=== PATIENT | female | born 1935 | race Hispanic/Latino ===

== ENCOUNTER → 2019-11-19 | Outpatient (CLI) | payer OTHER | END | disposition home or self-care (01) | LOC: SHCH 15:17 | PROVIDERS: ATTEND Internal Medicine Cardiovascular Disease | DX: I87.2 Venous insufficiency (chronic) (peripheral) (principal) | CPT/HCPCS: 93970 ==

== ENCOUNTER → 2020-01-14 | Outpatient (CLI) | payer OTHER | END | disposition home or self-care (01) | LOC: SHCH 12:00 | PROVIDERS: ATTEND Internal Medicine Cardiovascular Disease | DX: I87.2 Venous insufficiency (chronic) (peripheral) (principal) | CPT/HCPCS: 93971 ==

== ENCOUNTER → 2020-01-20 | Outpatient (CLI) | payer OTHER | END | disposition home or self-care (01) | LOC: SHCH 13:30 | PROVIDERS: ATTEND Internal Medicine Cardiovascular Disease | DX: Z09 Encounter for follow-up examination after completed treatment for conditions other than malignant neoplasm (principal); I87.2 Venous insufficiency (chronic) (peripheral) | CPT/HCPCS: 93971 ==

== ENCOUNTER 2020-05-25 14:37 | Inpatient (IN) | payer MEDICARE, OTHER ==
[~2020-05-25] VITALS: Ht 165.1 cm; Wt 64.0 kg
[2020-05-25 15:19] LABS: BASOPHILS % (AUTO) 0.5 % (0.0-5.0); EOSINOPHILS % (AUTO) 0.2 % (0.0-8.0); HEMATOCRIT 34.2 % (36-48); LYMPHOCYTES % (AUTO) 5.7 % (21.0-51.0); MEAN CORPUSCULAR HEMOGLOBIN 28.9 pg (27.0-33.0); MEAN CORPUSCULAR HGB CONC 33.9 g/dL (32.0-36.0); MEAN CORPUSCULAR VOLUME 85.3 fL (79-99); MONOCYTES % (AUTO) 4.9 % (3.0-13.0); NEUTROPHILS % (AUTO) 87.5 % (40.0-77.0); PLATELET COUNT (AUTO) 296 K/uL (130-400); RED BLOOD CELL COUNT(AUTO) 4.01 MIL/uL (4.00-5.50); RED CELL DISTRIBUTION WIDTH 16.7 % (11.0-15.5); WHITE BLOOD COUNT (AUTO) 14.5 K/uL (4.8-10.8)
[2020-05-25 15:28] LABS: CREATININE 2.1 mg/dL (0.5-1.5); POTASSIUM 3.8 mmol/L (3.5-5.1)
[2020-05-25 15:29] LABS: INR 1.19 (0.85-1.15); PROTHROMBIN TIME 12.8 SEC (9.6-11.6)
[2020-05-25 15:31] LABS: PARTIAL THROMBOPLASTIN TIME 32.5 SEC (26.3-35.5)
[2020-05-25 15:32] LABS: ALBUMIN 3.2 g/dL (3.5-5.0); BILIRUBIN,TOTAL 0.6 mg/dL (0.2-1.0); TOTAL PROTEIN, SERUM 7.5 g/dL (6.0-8.3)
[2020-05-25 15:40] LABS: B-TYPE NATRIURETIC PEPTIDE 897 pg/mL (0-100)
[2020-05-25] MEDS ORDERED: ZOSYN 3.375GM+NS 50ML 50 ML IV ONE (18:45)
[2020-05-25] MEDS ORDERED: VANCOMYCIN 750MG + NS 250 ML IV ONE ×2 (19:30)
[2020-05-25] MEDS ORDERED: GLUCAGON 1MG KIT 1 MG ML IM PRN (21:00)
[2020-05-25] MEDS ORDERED: ACETAMINOPHEN 325 MG TAB PO PRN (21:00)
[2020-05-25] MEDS: INSULIN R PO SS1/2 SQ SCH (21:00)
[2020-05-25] MEDS ORDERED: DEXTROSE 50%-WATER 50 ML DISP.SYRIN IV PRN (21:00)
[2020-05-25] MEDS ORDERED: CEFTRIAXONE 1G VIAL IVP SCH (21:00)
[2020-05-25] MEDS ORDERED: AZITHROMYCIN 500MG+NS 250ML 250 ML IV SCH (21:00)
[2020-05-26] MEDS ORDERED: ALPRAZOLAM 0.25 MG TABLET ONE ×2 (00:59→22:40)
[2020-05-26] MEDS: INSULIN R PO SS1/2 SQ SCH ×4 (07:30→21:00)
[2020-05-26] MEDS ORDERED: AZITHROMYCIN 500MG+NS 250ML 250 ML IV ONE (07:54)
[2020-05-26 07:55] LABS: BASOPHILS % (AUTO) 0.6 % (0.0-5.0); EOSINOPHILS % (AUTO) 0.4 % (0.0-8.0); HEMATOCRIT 33.5 % (36-48); MEAN CORPUSCULAR HEMOGLOBIN 27.6 pg (27.0-33.0); MEAN CORPUSCULAR HGB CONC 32.2 g/dL (32.0-36.0); MEAN CORPUSCULAR VOLUME 85.7 fL (79-99); MONOCYTES % (AUTO) 5.6 % (3.0-13.0); NEUTROPHILS % (AUTO) 85.5 % (40.0-77.0); PLATELET COUNT (AUTO) 256 K/uL (130-400); RED BLOOD CELL COUNT(AUTO) 3.91 MIL/uL (4.00-5.50); RED CELL DISTRIBUTION WIDTH 16.7 % (11.0-15.5); WHITE BLOOD COUNT (AUTO) 14.4 K/uL (4.8-10.8)
[2020-05-26] MEDS ORDERED: CEFTRIAXONE 1G VIAL ONE (07:55)
[2020-05-26] MEDS ORDERED: ENOXAPARIN SODIUM 30 MG/0.3 ML SQ ONE (07:55)
[2020-05-26] MEDS ORDERED: PANTOPRAZOLE 40 MG/VIAL ONE (07:55)
[2020-05-26 08:22] LABS: ALBUMIN 2.9 g/dL (3.5-5.0); BILIRUBIN,TOTAL 0.7 mg/dL (0.2-1.0); CREATININE 2.5 mg/dL (0.5-1.5); POTASSIUM 3.9 mmol/L (3.5-5.1); TOTAL PROTEIN, SERUM 6.7 g/dL (6.0-8.3)
[2020-05-26] MEDS: PANTOPRAZOLE 40 MG TAB DR PO SCH (09:00)
[2020-05-26] MEDS: ENOXAPARIN SODIUM 30 MG/0.3 ML SQ SCH (09:00)
[2020-05-26] MEDS ORDERED: VANCOMYCIN PROTOCOL PER PHARMACY IV SCH (12:30)
[2020-05-26] MEDS: VANCOMYCIN 500MG+NS 100ML 100 ML IV SCH (13:00)
[2020-05-26] MEDS ORDERED: ZOSYN 3.375GM+NS 50ML 50 ML IV ONE (13:14)
[2020-05-26] MEDS: ZOSYN 3.375GM+NS 50ML 50 ML IV SCH (14:00)
[2020-05-26] MEDS ORDERED: INSULIN HUMULIN R 100 UNIT/ML 3ML ONE (17:42)
[2020-05-26 23:24] LABS: CREATINE KINASE, TOTAL 10 U/L (21-232); MYOGLOBIN 74 ng/mL (10-92); TROPONIN I < 0.04 ng/mL (0.00-0.06)
[2020-05-27] VITALS (7 sets, daily range): BP systolic 112–134; BP diastolic 53–71
[2020-05-27] MEDS: ZOSYN 3.375GM+NS 50ML 50 ML IV SCH ×2 (02:30→15:17)
[2020-05-27 05:29] LABS: MEAN CORPUSCULAR HEMOGLOBIN 27.7 pg (27.0-33.0); MEAN CORPUSCULAR HGB CONC 32.2 g/dL (32.0-36.0); PLATELET COUNT (AUTO) 248 K/uL (130-400); RED BLOOD CELL COUNT(AUTO) 3.72 MIL/uL (4.00-5.50); RED CELL DISTRIBUTION WIDTH 16.7 % (11.0-15.5); WHITE BLOOD COUNT (AUTO) 13.1 K/uL (4.8-10.8)
[2020-05-27 05:35] LABS: CREATININE 2.7 mg/dL (0.5-1.5); PHOSPHORUS 3.1 mg/dL (2.5-4.9); POTASSIUM 3.8 mmol/L (3.5-5.1)
[2020-05-27 05:38] LABS: BAND NEUTROPHILS % (MANUAL) 3 % (0-2); LYMPHOCYTES % (MANUAL) 11 % (22-44); MONOCYTES % (MANUAL) 7 % (2-9); SEGMENTED NEUTROPHILS % 79 % (40-70)
[2020-05-27 05:39] LABS: MAN.DIFF COMMENT-IMPRESSION MANUAL DIFFERENTIAL; PLATELET MORPHOLOGY COMMENT ADEQUATE
[2020-05-27] MEDS ORDERED: MIDODRINE HCL 5 MG TABLET PO SCH ×2 (08:45→17:43)
[2020-05-27] MEDS: ENOXAPARIN SODIUM 30 MG/0.3 ML SQ SCH (10:19)
[2020-05-27] MEDS: PANTOPRAZOLE 40 MG TAB DR PO SCH (10:19)
[2020-05-27] MEDS: MEGESTROL 400 MG/10 ML UDCUP PO SCH (10:19)
[2020-05-27] MEDS: INSULIN R PO SS1/2 SQ SCH ×3 (11:30→20:15)
[2020-05-27] MEDS ORDERED: LORAZEPAM 1 MG TABLET PO ONE (22:00)
[2020-05-28] MEDS: VANCOMYCIN 500MG+NS 100ML 100 ML IV SCH (00:04)
[2020-05-28] MEDS: ZOSYN 3.375GM+NS 50ML 50 ML IV SCH ×2 (01:02→16:02)
[2020-05-28 04:00] VITALS: BP 116/56
[2020-05-28] MEDS: INSULIN R PO SS1/2 SQ SCH ×4 (05:47→20:07)
[2020-05-28] MEDS: PANTOPRAZOLE 40 MG TAB DR PO SCH (08:54)
[2020-05-28] MEDS: MEGESTROL 400 MG/10 ML UDCUP PO SCH (08:54)
[2020-05-28] MEDS: ENOXAPARIN SODIUM 30 MG/0.3 ML SQ SCH (08:55)
[2020-05-28 09:41] VITALS: BP 127/59
[2020-05-28 12:00] VITALS: BP 111/52
[2020-05-28 16:00] VITALS: BP 120/60
[2020-05-28] MEDS: LACTULOSE 20 GM/30 ML UDCUP PO SCH (19:40)
[2020-05-28 19:55] VITALS: BP 133/56
[2020-05-28] MEDS ORDERED: PANT40TA PO (22:23)
[2020-05-28] MEDS ORDERED: FLUD0.1T2 PO (22:23)
[2020-05-28] MEDS ORDERED: DIPH1TAB PO (22:23)
[2020-05-28] MEDS ORDERED: DIGO125T71 PO (22:23)
[2020-05-28] MEDS ORDERED: APIX2.5T PO (22:23)
[2020-05-28] MEDS ORDERED: FOLI1TAB61 PO (22:23)
[2020-05-28] MEDS ORDERED: MIDO10TA PO (22:23)
[2020-05-28] MEDS ORDERED: GLIP2.5T2 PO (22:23)
[2020-05-28] MEDS ORDERED: ZOLPIDEM TARTRATE 5 MG TAB ONE (23:21)
[2020-05-28] MEDS ORDERED: ZOLPIDEM TARTRATE 5 MG TAB PO ONE (23:30)
[2020-05-28 23:37] VITALS: BP 150/57
[2020-05-29] MEDS: ZOSYN 3.375GM+NS 50ML 50 ML IV SCH ×2 (00:22→15:17)
[2020-05-29 03:44] VITALS: BP 114/61
[2020-05-29] MEDS: INSULIN R PO SS1/2 SQ SCH ×4 (05:43→21:00)
[2020-05-29 08:00] VITALS: BP 152/75
[2020-05-29 09:08] LABS: HEMATOCRIT 31.6 % (36-48); MEAN CORPUSCULAR HEMOGLOBIN 28.5 pg (27.0-33.0); MEAN CORPUSCULAR HGB CONC 33.5 g/dL (32.0-36.0); MEAN CORPUSCULAR VOLUME 84.9 fL (79-99); RED BLOOD CELL COUNT(AUTO) 3.72 MIL/uL (4.00-5.50); RED CELL DISTRIBUTION WIDTH 16.7 % (11.0-15.5); WHITE BLOOD COUNT (AUTO) 13.6 K/uL (4.8-10.8)
[2020-05-29] MEDS: LACTULOSE 20 GM/30 ML UDCUP PO SCH ×2 (09:16→20:49)
[2020-05-29] MEDS: MEGESTROL 400 MG/10 ML UDCUP PO SCH (09:16)
[2020-05-29] MEDS: PANTOPRAZOLE 40 MG TAB DR PO SCH (09:16)
[2020-05-29] MEDS: ENOXAPARIN SODIUM 30 MG/0.3 ML SQ SCH (09:17)
[2020-05-29 09:22] LABS: CREATININE 2.5 mg/dL (0.5-1.5); MAGNESIUM 1.6 mg/dL (1.80-2.40); PHOSPHORUS 2.9 mg/dL (2.5-4.9); POTASSIUM 3.5 mmol/L (3.5-5.1)
[2020-05-29 12:00] VITALS: BP 120/54
[2020-05-29] MEDS ORDERED: COMPOUND IV REFRIGERATED 1 EACH IVSOLN MISC PRN (15:00)
[2020-05-29] MEDS: VANCOMYCIN 1G 1.5 GM in 0.9% NACL 250ML 250 ML IV SCH (15:16)
[2020-05-29 16:00] VITALS: BP 129/47
[2020-05-29 20:00] VITALS: BP 124/59
[2020-05-29] MEDS ORDERED: LORA-192 PO (20:15)
[2020-05-29] MEDS: CLONAZEPAM 0.5 MG TABLET PO SCH (20:48)
[2020-05-30] VITALS (7 sets, daily range): BP systolic 103–130; BP diastolic 43–71
[2020-05-30] MEDS: ZOSYN 3.375GM+NS 50ML 50 ML IV SCH ×3 (02:02→20:03)
[2020-05-30 04:32] LABS: BASOPHILS % (AUTO) 0.6 % (0.0-5.0); EOSINOPHILS % (AUTO) 0.5 % (0.0-8.0); HEMATOCRIT 29.6 % (36-48); LYMPHOCYTES % (AUTO) 8.9 % (21.0-51.0); MEAN CORPUSCULAR HEMOGLOBIN 28.5 pg (27.0-33.0); MEAN CORPUSCULAR HGB CONC 33.8 g/dL (32.0-36.0); MEAN CORPUSCULAR VOLUME 84.3 fL (79-99); MONOCYTES % (AUTO) 5.2 % (3.0-13.0); NEUTROPHILS % (AUTO) 84.3 % (40.0-77.0); PLATELET COUNT (AUTO) 214 K/uL (130-400); RED BLOOD CELL COUNT(AUTO) 3.51 MIL/uL (4.00-5.50); WHITE BLOOD COUNT (AUTO) 14.4 K/uL (4.8-10.8)
[2020-05-30 04:48] LABS: CREATININE 2.2 mg/dL (0.5-1.5); PHOSPHORUS 2.5 mg/dL (2.5-4.9); POTASSIUM 3.6 mmol/L (3.5-5.1)
[2020-05-30] MEDS: INSULIN R PO SS1/2 SQ SCH ×4 (07:18→21:41)
[2020-05-30] MEDS: LACTULOSE 20 GM/30 ML UDCUP PO SCH ×2 (07:19→20:04)
[2020-05-30] MEDS: MEGESTROL 400 MG/10 ML UDCUP PO SCH (08:45)
[2020-05-30] MEDS: ENOXAPARIN SODIUM 30 MG/0.3 ML SQ SCH (08:45)
[2020-05-30] MEDS: PANTOPRAZOLE 40 MG TAB DR PO SCH (08:45)
[2020-05-30] MEDS: CLONAZEPAM 0.5 MG TABLET PO SCH (20:01)
[2020-05-31 03:50] VITALS: BP 116/69
[2020-05-31 04:11] LABS: HEMATOCRIT 30.4 % (36-48); MEAN CORPUSCULAR HEMOGLOBIN 28.4 pg (27.0-33.0); MEAN CORPUSCULAR HGB CONC 32.9 g/dL (32.0-36.0); MEAN CORPUSCULAR VOLUME 86.4 fL (79-99); PLATELET COUNT (AUTO) 220 K/uL (130-400); RED BLOOD CELL COUNT(AUTO) 3.52 MIL/uL (4.00-5.50); RED CELL DISTRIBUTION WIDTH 16.9 % (11.0-15.5); WHITE BLOOD COUNT (AUTO) 12.2 K/uL (4.8-10.8)
[2020-05-31 04:27] LABS: ALBUMIN 2.6 g/dL (3.5-5.0); BILIRUBIN,TOTAL 0.7 mg/dL (0.2-1.0); CREATININE 2.6 mg/dL (0.5-1.5); POTASSIUM 3.9 mmol/L (3.5-5.1); TOTAL PROTEIN, SERUM 6.1 g/dL (6.0-8.3)
[2020-05-31 04:53] LABS: BAND NEUTROPHILS % (MANUAL) 2 % (0-2); EOSINOPHILS % (MANUAL) 1 % (1-6); LYMPHOCYTES % (MANUAL) 9 % (22-44); MAN.DIFF COMMENT-IMPRESSION MANUAL DIFFERENTIAL; MONOCYTES % (MANUAL) 1 % (2-9); PLATELET MORPHOLOGY COMMENT ADEQUATE; SEGMENTED NEUTROPHILS % 87 % (40-70)
[2020-05-31] MEDS: INSULIN R PO SS1/2 SQ SCH ×3 (06:32→20:25)
[2020-05-31 07:00] VITALS: BP 128/59
[2020-05-31] MEDS: LACTULOSE 20 GM/30 ML UDCUP PO SCH ×2 (09:00→20:09)
[2020-05-31] MEDS: PANTOPRAZOLE 40 MG TAB DR PO SCH (10:46)
[2020-05-31] MEDS: MEGESTROL 400 MG/10 ML UDCUP PO SCH (10:46)
[2020-05-31] MEDS: ENOXAPARIN SODIUM 30 MG/0.3 ML SQ SCH (10:46)
[2020-05-31] MEDS: ZOSYN 3.375GM+NS 50ML 50 ML IV SCH ×2 (10:46→20:17)
[2020-05-31 11:00] VITALS: BP 116/55
[2020-05-31 15:00] VITALS: BP 122/55
[2020-05-31] MEDS: VANCOMYCIN 1G 1.5 GM in 0.9% NACL 250ML 250 ML IV SCH (15:25)
[2020-05-31] MEDS: CLONAZEPAM 0.5 MG TABLET PO SCH (20:17)
[2020-05-31 20:28] VITALS: BP 101/50
[2020-05-31 23:48] VITALS: BP 103/61
[2020-06-01 03:35] VITALS: BP 116/62
[2020-06-01 05:23] LABS: BASOPHILS % (AUTO) 0.5 % (0.0-5.0); EOSINOPHILS % (AUTO) 0.5 % (0.0-8.0); HEMATOCRIT 29.8 % (36-48); LYMPHOCYTES % (AUTO) 14.7 % (21.0-51.0); MEAN CORPUSCULAR HEMOGLOBIN 28.1 pg (27.0-33.0); MEAN CORPUSCULAR HGB CONC 32.9 g/dL (32.0-36.0); MEAN CORPUSCULAR VOLUME 85.4 fL (79-99); MONOCYTES % (AUTO) 5.3 % (3.0-13.0); NEUTROPHILS % (AUTO) 78.7 % (40.0-77.0); PLATELET COUNT (AUTO) 231 K/uL (130-400); RED BLOOD CELL COUNT(AUTO) 3.49 MIL/uL (4.00-5.50); RED CELL DISTRIBUTION WIDTH 17.1 % (11.0-15.5); WHITE BLOOD COUNT (AUTO) 11.8 K/uL (4.8-10.8)
[2020-06-01] MEDS: INSULIN R PO SS1/2 SQ SCH ×2 (05:32→11:30)
[2020-06-01 05:56] LABS: CREATININE 2.9 mg/dL (0.5-1.5); POTASSIUM 4.2 mmol/L (3.5-5.1)
[2020-06-01 07:40] VITALS: BP 120/68
[2020-06-01] MEDS: ENOXAPARIN SODIUM 30 MG/0.3 ML SQ SCH (09:00)
[2020-06-01] MEDS: LACTULOSE 20 GM/30 ML UDCUP PO SCH (09:00)
[2020-06-01] MEDS ORDERED: LEVO250S3 PO (09:04)
[2020-06-01] MEDS ORDERED: MEGE400O4 PO (09:04)
[2020-06-01 12:00] VITALS: BP 115/50
[2020-06-01] MEDS: PANTOPRAZOLE 40 MG TAB DR PO SCH (15:36)
[2020-06-01] MEDS: MEGESTROL 400 MG/10 ML UDCUP PO SCH (15:36)
[2020-06-01] MEDS: ZOSYN 3.375GM+NS 50ML 50 ML IV SCH (15:38)
[2020-06-01 16:00] VITALS: BP 128/62
== END 2020-06-01 18:50 | disposition home health service (06) | DRG 193 ==
LOC: EDH 14:37 → EDHIP 19:55 → 4CH 05-27 02:20
PROVIDERS: ADMIT Internal Medicine Nephrology; ATTEND Internal Medicine Nephrology
PROC: 5A1D70Z Performance of Urinary Filtration, Intermittent, Less than 6 Hours Per Day (ICD-10-PCS; principal; 2020-05-27)
PROC: 5A1D70Z Performance of Urinary Filtration, Intermittent, Less than 6 Hours Per Day (ICD-10-PCS; 2020-05-29)
PROC: 5A1D70Z Performance of Urinary Filtration, Intermittent, Less than 6 Hours Per Day (ICD-10-PCS; 2020-06-01)
DX: J18.9 Pneumonia, unspecified organism (principal); N18.6 End stage renal disease; I12.0 Hypertensive chronic kidney disease with stage 5 chronic kidney disease or end stage renal disease; C90.00 Multiple myeloma not having achieved remission; J91.8 Pleural effusion in other conditions classified elsewhere; I48.91 Unspecified atrial fibrillation; I95.89 Other hypotension; Y95 Nosocomial condition; R53.81 Other malaise; I25.10 Atherosclerotic heart disease of native coronary artery without angina pectoris; E11.22 Type 2 diabetes mellitus with diabetic chronic kidney disease; E11.21 Type 2 diabetes mellitus with diabetic nephropathy; Z99.2 Dependence on renal dialysis; Z90.49 Acquired absence of other specified parts of digestive tract; Z98.49 Cataract extraction status, unspecified eye; Z91.81 History of falling
CPT/HCPCS: 36415; 71045; 80048; 80053; 80202; 82550; 82948; 83735; 83874; 83880; 84100; 84484; 85025; 85027; 85610; 85730; 87040; 90935; 93005; 97039; C9113; G0378; J0456; J0696; J1650; J1815; J2543; J3370; J7050

== ENCOUNTER 2020-06-03 09:27 | Inpatient (IN) | payer MEDICARE ==
[~2020-06-03] VITALS: Ht 165.1 cm; Wt 69.7 kg
[~2020-06-03 09:27] MED LIST: APIX2.5T PO; DIGO125T71 PO; DIPH1TAB PO; FLUD0.1T2 PO; FOLI1TAB61 PO; GLIP2.5T2 PO; LEVO250S3 PO; LORA-192 PO; MEGE400O4 PO; MIDO10TA PO; PANT40TA PO
[2020-06-03 09:56] LABS: BASOPHILS % (AUTO) 0.7 % (0.0-5.0); EOSINOPHILS % (AUTO) 0.3 % (0.0-8.0); HEMATOCRIT 28.9 % (36-48); LYMPHOCYTES % (AUTO) 12.5 % (21.0-51.0); MEAN CORPUSCULAR HEMOGLOBIN 29.2 pg (27.0-33.0); MEAN CORPUSCULAR HGB CONC 33.9 g/dL (32.0-36.0); PLATELET COUNT (AUTO) 264 K/uL (130-400); RED BLOOD CELL COUNT(AUTO) 3.36 MIL/uL (4.00-5.50); RED CELL DISTRIBUTION WIDTH 17.5 % (11.0-15.5); WHITE BLOOD COUNT (AUTO) 15.1 K/uL (4.8-10.8)
[2020-06-03 10:08] LABS: CREATININE 2.9 mg/dL (0.5-1.5); POTASSIUM 4.8 mmol/L (3.5-5.1)
[2020-06-03 10:13] LABS: BILIRUBIN,TOTAL 0.5 mg/dL (0.2-1.0); TOTAL PROTEIN, SERUM 6.7 g/dL (6.0-8.3)
[2020-06-03 10:17] LABS: CREATINE KINASE, TOTAL 31 U/L (21-232); MYOGLOBIN 128 ng/mL (10-92); TROPONIN I < 0.04 ng/mL (0.00-0.06)
[2020-06-03 10:25] LABS: INR 1.17 (0.85-1.15); PROTHROMBIN TIME 12.6 SEC (9.6-11.6)
[2020-06-03 10:26] LABS: PARTIAL THROMBOPLASTIN TIME 30.2 SEC (26.3-35.5)
[2020-06-03] MEDS ORDERED: MORPHINE 2 MG SYG ONE (12:23)
[2020-06-03] MEDS ORDERED: ACETAMINOPHEN 650 MG SUPPOSITORY RC PRN (13:15)
[2020-06-03] MEDS ORDERED: ALBUTEROL 0.083% 2.5 MG/3 ML INH IH PRN (13:15)
[2020-06-03] MEDS: HYDRALAZINE 25MG TABLET PO SCH ×2 (13:15→18:00)
[2020-06-03] MEDS ORDERED: ACETAMINOPHEN 325 MG TAB PO PRN (13:15)
[2020-06-03] MEDS ORDERED: VANCOMYCIN PROTOCOL PER PHARMACY IV SCH (13:15)
[2020-06-03] MEDS ORDERED: TEMAZEPAM 15 MG CAPSULE PO PRN (13:15)
[2020-06-03] MEDS ORDERED: CLONIDINE HCL 0.1 MG TABLET PO PRN (13:15)
[2020-06-03] MEDS ORDERED: TRAMADOL HCL 50 MG TABLET PO PRN (13:15)
[2020-06-03] MEDS ORDERED: CEFEPIME HCL 1 GM VIAL ONE (13:48)
[2020-06-03 13:51] LABS: ABG BASE EXCESS 2.4 mmol/L (-2.0-3.0); ABG HCO3 25.3 mmol/L (21.0-28.0); ABG OXYGEN SATURATION 94.7 % (95.0-99.0); ABG PCO2 34 mmHg (32-45)
[2020-06-03] MEDS ORDERED: CEFEPIME HCL 1 GM VIAL IVP SCH (14:00)
[2020-06-03 14:09] LABS: APPEARANCE,URINE Clear (CLEAR); BILIRUBIN,URINE Negative (NEGATIVE); COLOR,URINE Yellow (YELLOW); GLUCOSE, URINE (UA) Negative (NEGATIVE); KETONES,URINE Negative (NEGATIVE); LEUKOCYTE ESTERASE ,URINE Trace (NEGATIVE); NITRATE,URINE Negative (NEGATIVE); OCCULT BLOOD,URINE Negative (NEGATIVE); PROTEIN,URINE 300 mg/dL (NEGATIVE)
[2020-06-03 14:28] LABS: BACTERIA,URINE None Seen /HPF (None Seen); RBC,URINE None Seen /HPF (0-1); SQUAMOUS EPITHELIAL CELL,UR 0-2 /HPF (0-2); WBC,URINE 0-1 /HPF (0-1)
[2020-06-03 14:31] LABS: PH,URINE 8.5 (5.0-8.0)
[2020-06-03] MEDS ORDERED: VANCOMYCIN 1G/250ML KIT 250 ML IV ONE (15:00)
[2020-06-03] MEDS: METOCLOPRAMIDE 5 MG TABLET PO SCH ×2 (16:30→20:50)
[2020-06-03] MEDS: INSULIN HUMULIN R 100 UNIT/ML 3ML SQ SCH ×2 (16:30→20:50)
[2020-06-03 18:40] VITALS: BP 112/51
[2020-06-03 19:00] VITALS: BP 119/54
[2020-06-03] MEDS: MORPHINE 2 MG SYG IVP PRN (20:52)
[2020-06-04] VITALS (7 sets, daily range): BP systolic 113–140; BP diastolic 47–59
[2020-06-04 05:47] LABS: BASOPHILS % (AUTO) 0.8 % (0.0-5.0); EOSINOPHILS % (AUTO) 0.5 % (0.0-8.0); HEMATOCRIT 25.9 % (36-48); MEAN CORPUSCULAR HEMOGLOBIN 28.8 pg (27.0-33.0); MEAN CORPUSCULAR HGB CONC 33.2 g/dL (32.0-36.0); MEAN CORPUSCULAR VOLUME 86.6 fL (79-99); MONOCYTES % (AUTO) 6.7 % (3.0-13.0); NEUTROPHILS % (AUTO) 78.7 % (40.0-77.0); PLATELET COUNT (AUTO) 225 K/uL (130-400); RED BLOOD CELL COUNT(AUTO) 2.99 MIL/uL (4.00-5.50); RED CELL DISTRIBUTION WIDTH 17.5 % (11.0-15.5); WHITE BLOOD COUNT (AUTO) 11.1 K/uL (4.8-10.8)
[2020-06-04 05:57] LABS: CREATININE 1.9 mg/dL (0.5-1.5); MAGNESIUM 1.6 mg/dL (1.80-2.40); PHOSPHORUS 2.9 mg/dL (2.5-4.9); POTASSIUM 4.6 mmol/L (3.5-5.1)
[2020-06-04] MEDS: HYDRALAZINE 25MG TABLET PO SCH ×4 (06:00→17:26)
[2020-06-04 06:04] LABS: INR 1.15 (0.85-1.15); PROTHROMBIN TIME 12.4 SEC (9.6-11.6)
[2020-06-04] MEDS ORDERED: METOPROLOL TARTRATE 1 MG/ML 5ML VIAL IV STA (06:46)
[2020-06-04] MEDS: INSULIN HUMULIN R 100 UNIT/ML 3ML SQ SCH ×4 (07:00→21:40)
[2020-06-04] MEDS ORDERED: ENOXAPARIN SODIUM 30 MG/0.3 ML SQ SCH (09:00)
[2020-06-04] MEDS: POLYETHYLENE GLYCOL 3350 17 GM POWD.PACK PO SCH (09:24)
[2020-06-04] MEDS: METOCLOPRAMIDE 5 MG TABLET PO SCH ×4 (09:25→21:33)
[2020-06-04] MEDS: PREDNISONE 20 MG TABLET PO SCH (09:25)
[2020-06-04] MEDS: MORPHINE 2 MG SYG IVP PRN ×2 (09:39→15:23)
[2020-06-04] MEDS ORDERED: FLUDROCORTISONE ACETATE 0.1 MG TABLET PO SCH ×2 (10:15→11:15)
[2020-06-04] MEDS ORDERED: DIPHENOXYLATE HCL/ATROPINE 2.5/0.025 MG TAB PO PRN (10:15)
[2020-06-04] MEDS ORDERED: DIGOXIN 125 MCG TABLET PO SCH ×2 (10:15→11:15)
[2020-06-04] MEDS: PANTOPRAZOLE 40 MG TAB DR PO SCH (12:02)
[2020-06-04] MEDS: MIDODRINE HCL 5 MG TABLET PO SCH ×2 (12:02→17:00)
[2020-06-04] MEDS: MEGESTROL 400 MG/10 ML UDCUP PO SCH (12:02)
[2020-06-04] MEDS: Vitamin B Complex/Vit C/Folic Acid PO SCH (12:02)
[2020-06-04] MEDS: GLIPIZIDE XL 2.5MG TAB PO SCH (12:02)
[2020-06-04] MEDS ORDERED: PHARMACY COMMUNICATION MISC SCH (13:15)
[2020-06-04] MEDS ORDERED: MAGNESIUM SULFATE 1 GM in 0.9%NACL 50ML 50 ML IV ONE (14:00)
[2020-06-04] MEDS: CEFEPIME HCL 1 GM VIAL IVP SCH (17:28)
[2020-06-04] MEDS ORDERED: HYDRALAZINE 25MG TABLET PO PRN (21:15)
[2020-06-04] MEDS ORDERED: MIDODRINE HCL 5 MG TABLET PO PRN (21:15)
[2020-06-04] MEDS: LORAZEPAM 1 MG TABLET PO SCH (21:33)
[2020-06-04] MEDS: APIXABAN 2.5 MG TABLET PO SCH (21:34)
[2020-06-05 04:00] VITALS: BP 132/62
[2020-06-05 05:15] LABS: HEMATOCRIT 23.9 % (36-48); MEAN CORPUSCULAR HEMOGLOBIN 29.1 pg (27.0-33.0); MEAN CORPUSCULAR HGB CONC 33.9 g/dL (32.0-36.0); RED BLOOD CELL COUNT(AUTO) 2.78 MIL/uL (4.00-5.50); RED CELL DISTRIBUTION WIDTH 17.5 % (11.0-15.5); WHITE BLOOD COUNT (AUTO) 12.6 K/uL (4.8-10.8)
[2020-06-05 05:21] LABS: CREATININE 2.4 mg/dL (0.5-1.5); POTASSIUM 4.8 mmol/L (3.5-5.1)
[2020-06-05] MEDS: INSULIN HUMULIN R 100 UNIT/ML 3ML SQ SCH ×4 (05:33→20:41)
[2020-06-05 08:00] VITALS: BP 137/55
[2020-06-05] MEDS ORDERED: EPOETIN ALFA-EPBX (ESRD) 10,000 UNIT/ML VIAL SQ SCH (09:00)
[2020-06-05] MEDS ORDERED: COMPOUND IV MISC 1 EACH IVSOLN MISC PRN (09:00)
[2020-06-05] MEDS ORDERED: VANCOMYCIN 1G/250ML KIT 250 ML IV ONE (09:16)
[2020-06-05] MEDS: DIGOXIN 125 MCG TABLET PO SCH (10:21)
[2020-06-05] MEDS: FLUDROCORTISONE ACETATE 0.1 MG TABLET PO SCH (10:22)
[2020-06-05] MEDS: APIXABAN 2.5 MG TABLET PO SCH ×2 (10:22→20:22)
[2020-06-05] MEDS: Vitamin B Complex/Vit C/Folic Acid PO SCH (10:22)
[2020-06-05] MEDS: METOCLOPRAMIDE 5 MG TABLET PO SCH ×4 (10:23→20:22)
[2020-06-05] MEDS: MEGESTROL 400 MG/10 ML UDCUP PO SCH (10:23)
[2020-06-05] MEDS: PREDNISONE 20 MG TABLET PO SCH (10:23)
[2020-06-05] MEDS: GLIPIZIDE XL 2.5MG TAB PO SCH (10:26)
[2020-06-05] MEDS: IRON SUCROSE COMPLEX 100 MG in 0.9%NACL 50ML 50 ML IV SCH (10:26)
[2020-06-05] MEDS: PANTOPRAZOLE 40 MG TAB DR PO SCH (10:26)
[2020-06-05] MEDS ORDERED: LORAZEPAM 2 MG/ML 1 ML VIAL ONE (11:04)
[2020-06-05] MEDS ORDERED: LORAZEPAM 2 MG/ML 1 ML VIAL IVP SCH (11:15)
[2020-06-05 11:56] VITALS: BP 127/66
[2020-06-05] MEDS: POLYETHYLENE GLYCOL 3350 17 GM POWD.PACK PO SCH (11:56)
[2020-06-05 16:00] VITALS: BP 127/63
[2020-06-05] MEDS ORDERED: VANCOMYCIN 1G/250ML KIT 250 ML IV SCH (16:00)
[2020-06-05] MEDS ORDERED: VANCOMYCIN 750MG + NS 250 ML IV NR ×2 (16:00)
[2020-06-05] MEDS: CEFEPIME HCL 1 GM VIAL IVP SCH (16:50)
[2020-06-05 20:00] VITALS: BP 141/59
[2020-06-05] MEDS: LORAZEPAM 1 MG TABLET PO SCH (20:22)
[2020-06-05] MEDS: METOPROLOL TARTRATE 25 MG TAB PO SCH (23:40)
[2020-06-05 23:48] VITALS: BP 138/66
[2020-06-06 04:00] VITALS: BP 122/62
[2020-06-06 05:58] LABS: HEMATOCRIT 25.6 % (36-48); MEAN CORPUSCULAR HEMOGLOBIN 29.3 pg (27.0-33.0); MEAN CORPUSCULAR HGB CONC 33.6 g/dL (32.0-36.0); MEAN CORPUSCULAR VOLUME 87.1 fL (79-99); RED BLOOD CELL COUNT(AUTO) 2.94 MIL/uL (4.00-5.50); RED CELL DISTRIBUTION WIDTH 18.2 % (11.0-15.5); WHITE BLOOD COUNT (AUTO) 12.2 K/uL (4.8-10.8)
[2020-06-06] MEDS: INSULIN HUMULIN R 100 UNIT/ML 3ML SQ SCH ×4 (06:27→20:21)
[2020-06-06] MEDS: METOCLOPRAMIDE 5 MG TABLET PO SCH ×4 (06:31→20:12)
[2020-06-06] MEDS: PANTOPRAZOLE 40 MG TAB DR PO SCH (06:35)
[2020-06-06 06:43] LABS: CREATININE 2.3 mg/dL (0.5-1.5); DIGOXIN 1.04 ng/mL (0.50-2.00); POTASSIUM 4.6 mmol/L (3.5-5.1)
[2020-06-06 08:33] VITALS: BP 134/54
[2020-06-06] MEDS: PREDNISONE 20 MG TABLET PO SCH (09:03)
[2020-06-06] MEDS: Vitamin B Complex/Vit C/Folic Acid PO SCH (09:03)
[2020-06-06] MEDS: MEGESTROL 400 MG/10 ML UDCUP PO SCH (09:03)
[2020-06-06] MEDS: GLIPIZIDE XL 2.5MG TAB PO SCH (09:03)
[2020-06-06] MEDS: APIXABAN 2.5 MG TABLET PO SCH ×2 (09:04→20:12)
[2020-06-06] MEDS: IRON SUCROSE COMPLEX 100 MG in 0.9%NACL 50ML 50 ML IV SCH (09:04)
[2020-06-06] MEDS: METOPROLOL TARTRATE 25 MG TAB PO SCH ×3 (09:04→22:31)
[2020-06-06] MEDS: POLYETHYLENE GLYCOL 3350 17 GM POWD.PACK PO SCH (09:04)
[2020-06-06 12:27] VITALS: BP 129/56
[2020-06-06] MEDS: CEFEPIME HCL 1 GM VIAL IVP SCH (17:41)
[2020-06-06 17:50] VITALS: BP 130/55
[2020-06-06 20:00] VITALS: BP 129/56
[2020-06-06] MEDS: LORAZEPAM 1 MG TABLET PO SCH (20:12)
[2020-06-06 23:56] VITALS: BP 133/61
[2020-06-07 04:00] VITALS: BP 99/57
[2020-06-07] MEDS: INSULIN HUMULIN R 100 UNIT/ML 3ML SQ SCH ×4 (05:51→21:12)
[2020-06-07] MEDS: PANTOPRAZOLE 40 MG TAB DR PO SCH (06:51)
[2020-06-07] MEDS: METOCLOPRAMIDE 5 MG TABLET PO SCH ×4 (06:51→20:32)
[2020-06-07 08:33] VITALS: BP 127/66
[2020-06-07] MEDS: APIXABAN 2.5 MG TABLET PO SCH ×2 (09:29→20:32)
[2020-06-07] MEDS: MEGESTROL 400 MG/10 ML UDCUP PO SCH (09:29)
[2020-06-07] MEDS: Vitamin B Complex/Vit C/Folic Acid PO SCH (09:29)
[2020-06-07] MEDS: POLYETHYLENE GLYCOL 3350 17 GM POWD.PACK PO SCH (09:30)
[2020-06-07] MEDS: METOPROLOL TARTRATE 25 MG TAB PO SCH ×3 (09:30→22:32)
[2020-06-07] MEDS: IRON SUCROSE COMPLEX 100 MG in 0.9%NACL 50ML 50 ML IV SCH (09:30)
[2020-06-07] MEDS: GLIPIZIDE XL 2.5MG TAB PO SCH (09:30)
[2020-06-07] MEDS ORDERED: LORAZEPAM 0.5 MG TABLET PO PRN (14:45)
[2020-06-07] MEDS: CEFEPIME HCL 1 GM VIAL IVP SCH (16:43)
[2020-06-07 20:16] VITALS: BP 143/59
[2020-06-07] MEDS: LORAZEPAM 1 MG TABLET PO SCH (20:32)
[2020-06-07 23:25] VITALS: BP 126/57
[2020-06-08 04:01] VITALS: BP 128/63
[2020-06-08] MEDS: INSULIN HUMULIN R 100 UNIT/ML 3ML SQ SCH ×4 (05:26→21:00)
[2020-06-08] MEDS: METOCLOPRAMIDE 5 MG TABLET PO SCH ×4 (05:28→21:33)
[2020-06-08] MEDS: PANTOPRAZOLE 40 MG TAB DR PO SCH (05:29)
[2020-06-08 07:00] VITALS: BP 132/54
[2020-06-08] MEDS: Vitamin B Complex/Vit C/Folic Acid PO SCH (09:00)
[2020-06-08] MEDS: POLYETHYLENE GLYCOL 3350 17 GM POWD.PACK PO SCH (09:00)
[2020-06-08] MEDS: IRON SUCROSE COMPLEX 100 MG in 0.9%NACL 50ML 50 ML IV SCH (10:26)
[2020-06-08 11:30] VITALS: BP 119/64
[2020-06-08] MEDS: GLIPIZIDE XL 2.5MG TAB PO SCH (13:54)
[2020-06-08] MEDS: APIXABAN 2.5 MG TABLET PO SCH ×2 (13:55→21:32)
[2020-06-08] MEDS: MEGESTROL 400 MG/10 ML UDCUP PO SCH (13:56)
[2020-06-08] MEDS: METOPROLOL TARTRATE 25 MG TAB PO SCH ×2 (13:56→21:32)
[2020-06-08] MEDS: DIGOXIN 125 MCG TABLET PO SCH (13:56)
[2020-06-08] MEDS: FLUDROCORTISONE ACETATE 0.1 MG TABLET PO SCH (13:57)
[2020-06-08 16:00] VITALS: BP 119/55
[2020-06-08] MEDS: CEFEPIME HCL 1 GM VIAL IVP SCH (17:08)
[2020-06-08 20:00] VITALS: BP 115/56
[2020-06-08] MEDS: LORAZEPAM 1 MG TABLET PO SCH (21:32)
[2020-06-08 23:38] VITALS: BP 125/61
[2020-06-09 05:08] VITALS: BP 121/55
[2020-06-09 05:40] LABS: HEMATOCRIT 23.9 % (36-48); MEAN CORPUSCULAR HEMOGLOBIN 29.4 pg (27.0-33.0); MEAN CORPUSCULAR HGB CONC 33.5 g/dL (32.0-36.0); MEAN CORPUSCULAR VOLUME 87.9 fL (79-99); RED BLOOD CELL COUNT(AUTO) 2.72 MIL/uL (4.00-5.50); RED CELL DISTRIBUTION WIDTH 18.7 % (11.0-15.5); WHITE BLOOD COUNT (AUTO) 12.3 K/uL (4.8-10.8)
[2020-06-09 05:50] LABS: CREATININE 2.4 mg/dL (0.5-1.5); POTASSIUM 3.6 mmol/L (3.5-5.1)
[2020-06-09 07:00] VITALS: BP 123/60
[2020-06-09 07:16] LABS: HEPATITIS B CORE IGM Negative (Negative); HEPATITIS Bs ANTIGEN SCREEN P Negative (Negative)
[2020-06-09] MEDS: INSULIN HUMULIN R 100 UNIT/ML 3ML SQ SCH ×3 (07:24→11:55)
[2020-06-09] MEDS: PANTOPRAZOLE 40 MG TAB DR PO SCH (07:24)
[2020-06-09] MEDS: METOCLOPRAMIDE 5 MG TABLET PO SCH ×2 (07:24→11:30)
[2020-06-09] MEDS: POLYETHYLENE GLYCOL 3350 17 GM POWD.PACK PO SCH (09:00)
[2020-06-09] MEDS: METOPROLOL TARTRATE 25 MG TAB PO SCH (10:49)
[2020-06-09] MEDS: Vitamin B Complex/Vit C/Folic Acid PO SCH (10:49)
[2020-06-09] MEDS: GLIPIZIDE XL 2.5MG TAB PO SCH (10:49)
[2020-06-09] MEDS: MEGESTROL 400 MG/10 ML UDCUP PO SCH (10:49)
[2020-06-09] MEDS: APIXABAN 2.5 MG TABLET PO SCH (10:49)
[2020-06-09 11:30] VITALS: BP 124/62
== END 2020-06-09 13:20 | DRG 193 ==
LOC: EDH 09:27 → OBSVTOIN 13:11 → EDHIP 13:11 → 3BH 18:38
PROVIDERS: ADMIT Internal Medicine Critical Care Medicine; ATTEND Internal Medicine Critical Care Medicine
PROC: 5A1D70Z Performance of Urinary Filtration, Intermittent, Less than 6 Hours Per Day (ICD-10-PCS; principal; 2020-06-03)
PROC: 5A1D70Z Performance of Urinary Filtration, Intermittent, Less than 6 Hours Per Day (ICD-10-PCS; 2020-06-08)
DX: J18.9 Pneumonia, unspecified organism (principal); N18.6 End stage renal disease; J90 Pleural effusion, not elsewhere classified; I12.0 Hypertensive chronic kidney disease with stage 5 chronic kidney disease or end stage renal disease; J44.0 Chronic obstructive pulmonary disease with (acute) lower respiratory infection; S80.01XA Contusion of right knee, initial encounter; I48.91 Unspecified atrial fibrillation; Z79.01 Long term (current) use of anticoagulants; Z99.2 Dependence on renal dialysis; R53.81 Other malaise; D63.8 Anemia in other chronic diseases classified elsewhere; E87.70 Fluid overload, unspecified; F41.9 Anxiety disorder, unspecified; I95.89 Other hypotension; Y95 Nosocomial condition; Z60.2 Problems related to living alone; Z90.49 Acquired absence of other specified parts of digestive tract; Z98.49 Cataract extraction status, unspecified eye; W01.0XXA Fall on same level from slipping, tripping and stumbling without subsequent striking against object, initial encounter; Y93.89 Activity, other specified; Y92.89 Other specified places as the place of occurrence of the external cause; Y99.8 Other external cause status; Z20.822 Contact with and (suspected) exposure to COVID-19
CPT/HCPCS: 36415; 36600; 70450; 71045; 72125; 73562; 80048; 80053; 80074; 80162; 80202; 81001; 82550; 82803; 82948; 83605; 83735; 83874; 84100; 84145; 84484; 85025; 85027; 85378; 85610; 85730; 86850; 86900; 86901; 90935; 93005; 94664; 97039; G0378; J0692; J1650; J1756; J1815; J2060; J3370; J3475; J7050; U0003

== ENCOUNTER → 2020-07-14 | Outpatient (CLI) | payer MEDICARE ==
[~2020-07-14] MED LIST changes: +LIDOCAINE HCL 4% LTA SOL 4 ML VIAL TP ONE
== END | disposition home or self-care (01) ==
LOC: WHH 09:28
PROVIDERS: ATTEND Family Medicine
DX: E11.622 Type 2 diabetes mellitus with other skin ulcer (principal); L97.812 Non-pressure chronic ulcer of other part of right lower leg with fat layer exposed; S81.001A Unspecified open wound, right knee, initial encounter; E11.22 Type 2 diabetes mellitus with diabetic chronic kidney disease; I12.0 Hypertensive chronic kidney disease with stage 5 chronic kidney disease or end stage renal disease; N18.6 End stage renal disease; E11.40 Type 2 diabetes mellitus with diabetic neuropathy, unspecified; I48.91 Unspecified atrial fibrillation; J44.0 Chronic obstructive pulmonary disease with (acute) lower respiratory infection; I25.10 Atherosclerotic heart disease of native coronary artery without angina pectoris; F41.9 Anxiety disorder, unspecified; Z79.01 Long term (current) use of anticoagulants; Z98.49 Cataract extraction status, unspecified eye; Z99.2 Dependence on renal dialysis; Z90.49 Acquired absence of other specified parts of digestive tract; X58.XXXA Exposure to other specified factors, initial encounter; Y93.89 Activity, other specified; Y92.89 Other specified places as the place of occurrence of the external cause; Y99.8 Other external cause status
CPT/HCPCS: 11042; A4450; A6021; A6197

== ENCOUNTER → 2020-08-04 | Outpatient (CLI) | payer MEDICARE ==
[~2020-08-04] MED LIST changes: -LIDOCAINE HCL 4% LTA SOL 4 ML VIAL TP ONE
== END | disposition home or self-care (01) ==
LOC: WHH 08:45
PROVIDERS: ATTEND Family Medicine
DX: E11.622 Type 2 diabetes mellitus with other skin ulcer (principal); L97.812 Non-pressure chronic ulcer of other part of right lower leg with fat layer exposed; S81.001D Unspecified open wound, right knee, subsequent encounter; E11.22 Type 2 diabetes mellitus with diabetic chronic kidney disease; I12.0 Hypertensive chronic kidney disease with stage 5 chronic kidney disease or end stage renal disease; N18.6 End stage renal disease; E11.40 Type 2 diabetes mellitus with diabetic neuropathy, unspecified; I48.91 Unspecified atrial fibrillation; J44.0 Chronic obstructive pulmonary disease with (acute) lower respiratory infection; I25.10 Atherosclerotic heart disease of native coronary artery without angina pectoris; F41.9 Anxiety disorder, unspecified; Z79.01 Long term (current) use of anticoagulants; Z98.49 Cataract extraction status, unspecified eye; Z99.2 Dependence on renal dialysis; Z90.49 Acquired absence of other specified parts of digestive tract; X58.XXXD Exposure to other specified factors, subsequent encounter
CPT/HCPCS: 17250; A4450; A6209

== ENCOUNTER → 2020-08-18 | Outpatient (CLI) | payer MEDICARE ==
[~2020-08-18] MED LIST changes: +LIDOCAINE HCL 4% LTA SOL 4 ML VIAL TP ONE
== END | disposition home or self-care (01) ==
LOC: WHH 08:36
PROVIDERS: ATTEND Family Medicine
DX: E11.622 Type 2 diabetes mellitus with other skin ulcer (principal); L97.812 Non-pressure chronic ulcer of other part of right lower leg with fat layer exposed; S81.001D Unspecified open wound, right knee, subsequent encounter; E11.22 Type 2 diabetes mellitus with diabetic chronic kidney disease; I12.0 Hypertensive chronic kidney disease with stage 5 chronic kidney disease or end stage renal disease; N18.6 End stage renal disease; E11.40 Type 2 diabetes mellitus with diabetic neuropathy, unspecified; I48.91 Unspecified atrial fibrillation; J44.0 Chronic obstructive pulmonary disease with (acute) lower respiratory infection; I25.10 Atherosclerotic heart disease of native coronary artery without angina pectoris; F41.9 Anxiety disorder, unspecified; Z79.01 Long term (current) use of anticoagulants; Z98.49 Cataract extraction status, unspecified eye; Z99.2 Dependence on renal dialysis; Z90.49 Acquired absence of other specified parts of digestive tract; X58.XXXD Exposure to other specified factors, subsequent encounter
CPT/HCPCS: 11042; A4450; A6209

== ENCOUNTER → 2020-09-08 | Outpatient (CLI) | payer MEDICARE ==
[~2020-09-08] MED LIST changes: -LIDOCAINE HCL 4% LTA SOL 4 ML VIAL TP ONE
== END | disposition home or self-care (01) ==
LOC: WHH 08:45
PROVIDERS: ATTEND Family Medicine
DX: E11.622 Type 2 diabetes mellitus with other skin ulcer (principal); L97.812 Non-pressure chronic ulcer of other part of right lower leg with fat layer exposed; S81.001D Unspecified open wound, right knee, subsequent encounter; E11.22 Type 2 diabetes mellitus with diabetic chronic kidney disease; I12.0 Hypertensive chronic kidney disease with stage 5 chronic kidney disease or end stage renal disease; N18.6 End stage renal disease; E11.40 Type 2 diabetes mellitus with diabetic neuropathy, unspecified; I48.91 Unspecified atrial fibrillation; J44.0 Chronic obstructive pulmonary disease with (acute) lower respiratory infection; I25.10 Atherosclerotic heart disease of native coronary artery without angina pectoris; F41.9 Anxiety disorder, unspecified; Z79.01 Long term (current) use of anticoagulants; Z98.49 Cataract extraction status, unspecified eye; Z99.2 Dependence on renal dialysis; Z90.49 Acquired absence of other specified parts of digestive tract; X58.XXXD Exposure to other specified factors, subsequent encounter
CPT/HCPCS: G0463

== ENCOUNTER → 2023-03-14 | Outpatient (CLI) | payer OTHER ==
[~2023-03-14] MED LIST changes: -LEVO250S3 PO; +LEVO250S9 PO; +MEGE400O17 PO; -MEGE400O4 PO
[2023-03-14 16:32] LABS: BASOPHILS # (AUTO) 0.07 K/uL (0.00-0.20); BASOPHILS % (AUTO) 0.8 % (0.0-5.0); EOSINOPHILS # (AUTO) 0.16 K/uL (0.00-0.70); EOSINOPHILS % (AUTO) 1.8 % (0.0-8.0); HEMATOCRIT 35.3 % (36-48); IMMATURE GRANULOCYTE ABSOLUTE 0.04 K/uL (0-1); LYMPHOCYTES # (AUTO) 1.4 K/uL (1.0-4.8); LYMPHOCYTES % (AUTO) 15.7 % (21.0-51.0); MEAN CORPUSCULAR HEMOGLOBIN 29.4 pg (27.0-33.0); MEAN CORPUSCULAR HGB CONC 31.7 g/dL (32.0-36.0); MEAN CORPUSCULAR VOLUME 92.7 fL (79-99); MONOCYTES # (AUTO) 0.7 K/uL (0.1-1.0); MONOCYTES % (AUTO) 7.6 % (3.0-13.0); NEUTROPHILS # (AUTO) 6.6 K/uL (1.8-7.7); NEUTROPHILS % (AUTO) 73.7 % (40.0-77.0); PLATELET COUNT (AUTO) 177 K/uL (130-400); RED BLOOD CELL COUNT(AUTO) 3.81 MIL/uL (4.00-5.50); RED CELL DISTRIBUTION WIDTH 16.5 % (11.0-15.5); WHITE BLOOD COUNT (AUTO) 8.9 K/uL (4.8-10.8)
[2023-03-14 16:39] LABS: CREATININE 3.1 mg/dL (0.5-1.5); POTASSIUM 4.6 mmol/L (3.5-5.1)
[2023-03-14 16:43] LABS: INR 1.02 (0.85-1.15); PROTHROMBIN TIME 11.8 SEC (9.6-11.6)
[2023-03-14 16:44] LABS: PARTIAL THROMBOPLASTIN TIME 30.7 SEC (26.3-35.5)
== END | disposition home or self-care (01) ==
LOC: LAB 15:13
PROVIDERS: ATTEND Internal Medicine Cardiovascular Disease
DX: I87.1 Compression of vein (principal); I10 Essential (primary) hypertension; I87.2 Venous insufficiency (chronic) (peripheral); I73.9 Peripheral vascular disease, unspecified; I48.0 Paroxysmal atrial fibrillation; E78.5 Hyperlipidemia, unspecified; M79.89 Other specified soft tissue disorders; M79.604 Pain in right leg; M79.605 Pain in left leg
CPT/HCPCS: 36415; 80048; 85025; 85610; 85730